=== PATIENT | male | born 1975 | race African-American/Black ===

== ENCOUNTER 2017-04-28 16:35 | Inpatient (IN) | payer MEDICAID, MEDICARE, OTHER, SELFPAY ==
[~2017-04-28] VITALS: Ht 185.4 cm; Wt 83.0 kg
[2017-04-28] MEDS ORDERED: LISI-170 PO (16:58)
[2017-04-28] MEDS ORDERED: THIA100T10 PO (16:59)
[2017-04-28] MEDS ORDERED: FOLI0.8T2 PO (17:00)
[2017-04-28] MEDS ORDERED: LABETALOL 5MG/ML, 20ML ONE (17:18)
[2017-04-28] MEDS ORDERED: LABETALOL 5MG/ML, 20ML IVPush ONE ×2 (17:30→18:30)
[2017-04-28 17:52] LABS: HEMATOCRIT 23.6 % (39.2-51.8); HEMOGLOBIN 7.9 g/dL (13.7-18.0); WHITE BLOOD COUNT 5.3 x10^3/uL (3.4-10)
[2017-04-28 17:57] LABS: BLOOD UREA NITROGEN 32 mg/dL (7-18)
[2017-04-28 18:11] LABS: IS PT STATUS REG ER OR PRE ER? YES
[2017-04-28] MEDS ORDERED: hydrALAzine 20 MG/ML, 1ML IVPush PRN (20:00)
[2017-04-28] MEDS ORDERED: ONDANSETRON 2MG/ML, 2ML IVPush PRN (20:00)
[2017-04-28] MEDS ORDERED: LABETALOL 5MG/ML, 20ML IVPush PRN (20:00)
[2017-04-28] MEDS: SEVELAMER 800MG TABLET PO SCH (20:08)
[2017-04-28] MEDS ORDERED: HEPARIN 5,000 UNITS/ML, 1ML ONE (20:20)
[2017-04-28] MEDS: HEPARIN 5,000 UNITS/ML, 1ML SQ SCH (20:25)
[2017-04-28] MEDS ORDERED: POTASSIUM CHLORIDE 20 MEQ TAB.ER.PRT PO ONE (20:30)
[2017-04-28] MEDS: SODIUM CHLORIDE FLUSH 10ML SYR IVF SCH (21:00)
[2017-04-28] MEDS ORDERED: POTASSIUM CHLORIDE 20 MEQ TAB.ER.PRT ONE (22:47)
[2017-04-28] MEDS: CALCIUM CARBONATE 500 MG TABLET PO SCH (23:08)
[2017-04-28] MEDS: SODIUM BICARBONATE 650 MG TABLET PO SCH (23:08)
[2017-04-28] MEDS ORDERED: ACETAMINOPHEN 325 MG TABLET ONE (23:21)
[2017-04-28] MEDS: ACETAMINOPHEN 325 MG TABLET PO PRN (23:30)
[2017-04-29] MEDS ORDERED: LORazepam 1MG TABLET ONE ×2 (02:31→09:28)
[2017-04-29] MEDS ORDERED: KETOROLAC 30 MG/1 ML ONE (02:32)
[2017-04-29] MEDS ORDERED: KETOROLAC 30 MG/1 ML IVPush ONE (03:00)
[2017-04-29] MEDS ORDERED: LORazepam 1MG TABLET PO ONE (03:00)
[2017-04-29] MEDS: HEPARIN 5,000 UNITS/ML, 1ML SQ SCH ×3 (04:00→20:00)
[2017-04-29] MEDS: CALCIUM CARBONATE 500 MG TABLET PO SCH ×4 (06:00→21:00)
[2017-04-29 06:20] LABS: ASPARTATE AMINO TRANSFERASE 25 U/L (15-37); BLOOD UREA NITROGEN 38 mg/dL (7-18)
[2017-04-29] MEDS ORDERED: hydrALAzine 20 MG/ML, 1ML ONE (06:30)
[2017-04-29] MEDS ORDERED: ACETAMINOPHEN 325 MG TABLET ONE (08:11)
[2017-04-29] MEDS: ACETAMINOPHEN 325 MG TABLET PO PRN ×3 (08:14→19:43)
[2017-04-29] MEDS ORDERED: THIAMINE 100MG TABLET ONE (08:48)
[2017-04-29] MEDS: SODIUM BICARBONATE 650 MG TABLET PO SCH (08:50)
[2017-04-29] MEDS: FOLIC ACID 1 MG TABLET PO SCH (08:50)
[2017-04-29] MEDS: THIAMINE 100MG TABLET PO SCH (08:50)
[2017-04-29] MEDS: SEVELAMER 800MG TABLET PO SCH ×3 (08:50→16:13)
[2017-04-29] MEDS ORDERED: LISINOPRIL 20 MG TABLET ONE (08:53)
[2017-04-29] MEDS ORDERED: LISINOPRIL 20 MG TABLET PO SCH (09:00)
[2017-04-29] MEDS: SODIUM CHLORIDE FLUSH 10ML SYR IVF SCH ×2 (09:00→21:01)
[2017-04-29] MEDS: LORazepam 1MG TABLET PO PRN ×3 (09:31→22:22)
[2017-04-29 10:48] VITALS: BP 193/96
[2017-04-29] MEDS: LABETALOL 5MG/ML, 20ML IVPush PRN (11:05)
[2017-04-29 11:30] VITALS: BP 189/94
[2017-04-29 13:25] VITALS: BP 169/94
[2017-04-29 14:38] LABS: HEMATOCRIT 23.9 % (39.2-51.8); HEMOGLOBIN 8.1 g/dL (13.7-18.0); WHITE BLOOD COUNT 5.1 x10^3/uL (3.4-10)
[2017-04-29 14:43] VITALS: BP 178/97
[2017-04-29] MEDS: HYDROcodone/APAP 5/325 TABLET PO PRN ×2 (16:08→21:00)
[2017-04-29] MEDS: AMLODIPINE 5 MG TABLET PO SCH ×2 (16:12→20:59)
[2017-04-29 17:02] VITALS: BP 169/72
[2017-04-29 20:34] VITALS: BP 168/87
[2017-04-29] MEDS: LISINOPRIL 20 MG TABLET PO SCH (21:00)
[2017-04-29] MEDS ORDERED: AMLODIPINE 5 MG TABLET PO SCH (21:00)
[2017-04-30] MEDS: HYDROcodone/APAP 5/325 TABLET PO PRN ×3 (01:33→23:47)
[2017-04-30 02:00] VITALS: BP 154/94
[2017-04-30] MEDS: HEPARIN 5,000 UNITS/ML, 1ML SQ SCH ×3 (04:00→20:00)
[2017-04-30] MEDS: CALCIUM CARBONATE 500 MG TABLET PO SCH ×4 (05:36→21:27)
[2017-04-30 07:23] LABS: HEMATOCRIT 26.1 % (39.2-51.8); HEMOGLOBIN 8.5 g/dL (13.7-18.0); WHITE BLOOD COUNT 6.1 x10^3/uL (3.4-10)
[2017-04-30 07:26] LABS: BLOOD UREA NITROGEN 43 mg/dL (7-18)
[2017-04-30] MEDS: LORazepam 1MG TABLET PO PRN ×2 (08:30→23:47)
[2017-04-30] MEDS: SODIUM CHLORIDE FLUSH 10ML SYR IVF SCH ×2 (08:31→21:26)
[2017-04-30] MEDS: FOLIC ACID 1 MG TABLET PO SCH (08:31)
[2017-04-30] MEDS: THIAMINE 100MG TABLET PO SCH (08:31)
[2017-04-30] MEDS: SEVELAMER 800MG TABLET PO SCH ×3 (08:31→17:00)
[2017-04-30] MEDS: LISINOPRIL 20 MG TABLET PO SCH ×2 (08:47→21:26)
[2017-04-30] MEDS: AMLODIPINE 5 MG TABLET PO SCH ×2 (08:47→21:27)
[2017-04-30 08:49] VITALS: BP 188/112
[2017-04-30 09:49] VITALS: BP_SYST 173; BP_SYST 175; BP_DIAS 103; BP_DIAS 109
[2017-04-30 10:49] LABS: HEP B SURF. AB < 3.1 mIU/mL (0.0-10.0)
[2017-04-30 16:00] VITALS: BP 109/56
[2017-04-30 19:41] VITALS: BP 158/87
[2017-05-01 02:00] VITALS: BP 152/91
[2017-05-01] MEDS: HEPARIN 5,000 UNITS/ML, 1ML SQ SCH ×3 (04:00→20:00)
[2017-05-01] MEDS: CALCIUM CARBONATE 500 MG TABLET PO SCH ×4 (05:30→21:25)
[2017-05-01 07:13] LABS: BLOOD UREA NITROGEN 39 mg/dL (7-18)
[2017-05-01 08:15] VITALS: BP 156/92
[2017-05-01] MEDS: AMLODIPINE 5 MG TABLET PO SCH ×2 (08:53→21:25)
[2017-05-01] MEDS: LISINOPRIL 20 MG TABLET PO SCH ×2 (08:54→21:25)
[2017-05-01] MEDS: SEVELAMER 800MG TABLET PO SCH ×4 (08:55→20:31)
[2017-05-01] MEDS: SODIUM CHLORIDE FLUSH 10ML SYR IVF SCH ×2 (09:01→21:25)
[2017-05-01] MEDS: FOLIC ACID 1 MG TABLET PO SCH (09:01)
[2017-05-01] MEDS: THIAMINE 100MG TABLET PO SCH (09:01)
[2017-05-01] MEDS: LORazepam 1MG TABLET PO PRN ×2 (14:41→17:07)
[2017-05-01 14:45] VITALS: BP 176/109
[2017-05-01] MEDS: LABETALOL 5MG/ML, 20ML IVPush PRN (14:51)
[2017-05-01] MEDS: HYDROcodone/APAP 5/325 TABLET PO PRN (16:03)
[2017-05-01] MEDS: ASPIRIN 81 MG TABLET EC PO SCH (16:03)
[2017-05-01 21:02] VITALS: BP 150/90
[2017-05-02 04:00] VITALS: BP 143/91
[2017-05-02] MEDS: HEPARIN 5,000 UNITS/ML, 1ML SQ SCH ×3 (04:00→20:49)
[2017-05-02] MEDS: ASPIRIN 81 MG TABLET EC PO SCH (05:09)
[2017-05-02] MEDS: CALCIUM CARBONATE 500 MG TABLET PO SCH ×4 (05:09→20:48)
[2017-05-02 08:02] VITALS: BP 148/91
[2017-05-02] MEDS: HYDROcodone/APAP 5/325 TABLET PO PRN ×4 (08:19→21:19)
[2017-05-02] MEDS: SODIUM CHLORIDE FLUSH 10ML SYR IVF SCH ×2 (08:19→20:49)
[2017-05-02] MEDS: LISINOPRIL 20 MG TABLET PO SCH ×2 (08:19→20:49)
[2017-05-02] MEDS: LORazepam 1MG TABLET PO PRN ×2 (08:19→14:55)
[2017-05-02] MEDS: AMLODIPINE 5 MG TABLET PO SCH ×2 (08:19→20:48)
[2017-05-02] MEDS: FOLIC ACID 1 MG TABLET PO SCH (08:19)
[2017-05-02] MEDS: THIAMINE 100MG TABLET PO SCH (08:19)
[2017-05-02 08:57] LABS: BLOOD UREA NITROGEN 63 mg/dL (7-18)
[2017-05-02 09:43] LABS: HEMATOCRIT 23.8 % (39.2-51.8); WHITE BLOOD COUNT 6.1 x10^3/uL (3.4-10)
[2017-05-02] MEDS: SEVELAMER 800MG TABLET PO SCH ×2 (12:00→14:55)
[2017-05-02 14:57] VITALS: BP 155/84
[2017-05-02 20:00] VITALS: BP 139/86
[2017-05-03 02:00] VITALS: BP 130/81
[2017-05-03] MEDS: HEPARIN 5,000 UNITS/ML, 1ML SQ SCH ×4 (04:00→20:00)
[2017-05-03] MEDS: ASPIRIN 81 MG TABLET EC PO SCH (05:08)
[2017-05-03] MEDS: CALCIUM CARBONATE 500 MG TABLET PO SCH ×4 (05:08→21:26)
[2017-05-03 06:21] LABS: HEMATOCRIT 25.8 % (39.2-51.8); HEMOGLOBIN 8.5 g/dL (13.7-18.0); WHITE BLOOD COUNT 5.4 x10^3/uL (3.4-10)
[2017-05-03 06:22] LABS: BLOOD UREA NITROGEN 47 mg/dL (7-18)
[2017-05-03 06:23] LABS: LACTATE DEHYDROGENASE 381 U/L (87-241)
[2017-05-03] MEDS: SEVELAMER 800MG TABLET PO SCH ×3 (08:50→18:44)
[2017-05-03] MEDS: FOLIC ACID 1 MG TABLET PO SCH (08:51)
[2017-05-03] MEDS: SODIUM CHLORIDE FLUSH 10ML SYR IVF SCH ×2 (08:51→21:29)
[2017-05-03] MEDS: LISINOPRIL 20 MG TABLET PO SCH ×2 (08:51→21:26)
[2017-05-03] MEDS: AMLODIPINE 5 MG TABLET PO SCH ×2 (08:52→21:26)
[2017-05-03] MEDS: LORazepam 1MG TABLET PO PRN ×2 (08:52→18:43)
[2017-05-03] MEDS: HYDROcodone/APAP 5/325 TABLET PO PRN ×4 (08:52→21:26)
[2017-05-03] MEDS: THIAMINE 100MG TABLET PO SCH (08:52)
[2017-05-03] MEDS: DEXAMETHASONE 4 MG/ML, 1ML IVPush SCH ×4 (09:00→21:00)
[2017-05-03 09:27] VITALS: BP 136/93
[2017-05-03] MEDS: ARANESP 60 MCG/ML **ESRD SQ SCH ×2 (11:00→16:30)
[2017-05-03 13:48] VITALS: BP 138/91
[2017-05-03] MEDS ORDERED: POLYETHYLENE GLYCOL 17 GM PACKET PO PRN (19:30)
[2017-05-03 20:22] VITALS: BP 130/80
[2017-05-03] MEDS: SENNA/DOCUSATE TABLET PO PRN (21:26)
[2017-05-04 02:45] VITALS: BP 143/89
[2017-05-04] MEDS: DEXAMETHASONE 4 MG/ML, 1ML IVPush SCH ×4 (03:00→18:21)
[2017-05-04] MEDS: LORazepam 1MG TABLET PO PRN ×3 (03:48→15:03)
[2017-05-04] MEDS: HYDROcodone/APAP 5/325 TABLET PO PRN ×4 (03:49→20:10)
[2017-05-04] MEDS: HEPARIN 5,000 UNITS/ML, 1ML SQ SCH ×3 (04:00→20:00)
[2017-05-04] MEDS: CALCIUM CARBONATE 500 MG TABLET PO SCH ×4 (05:08→21:12)
[2017-05-04] MEDS: ASPIRIN 81 MG TABLET EC PO SCH (05:08)
[2017-05-04 05:28] LABS: HEMATOCRIT 23.6 % (39.2-51.8); HEMOGLOBIN 7.8 g/dL (13.7-18.0); WHITE BLOOD COUNT 5.3 x10^3/uL (3.4-10)
[2017-05-04 05:32] LABS: BLOOD UREA NITROGEN 65 mg/dL (7-18)
[2017-05-04 05:54] LABS: BLOOD UREA NITROGEN 61 mg/dL (7-18); FERRITIN 540.6 ng/mL (26-388); TOTAL IRON BINDING CAPACITY 197 mcg/dL (250-450)
[2017-05-04 08:43] VITALS: BP 143/91
[2017-05-04] MEDS: LISINOPRIL 20 MG TABLET PO SCH ×2 (08:45→21:12)
[2017-05-04] MEDS: SODIUM CHLORIDE FLUSH 10ML SYR IVF SCH ×2 (08:45→21:12)
[2017-05-04] MEDS: THIAMINE 100MG TABLET PO SCH (08:45)
[2017-05-04] MEDS: AMLODIPINE 5 MG TABLET PO SCH ×2 (08:45→21:12)
[2017-05-04] MEDS: FOLIC ACID 1 MG TABLET PO SCH (08:45)
[2017-05-04] MEDS: SEVELAMER 800MG TABLET PO SCH ×3 (08:45→17:31)
[2017-05-04 14:55] VITALS: BP 151/99
[2017-05-04] MEDS: SENNA/DOCUSATE TABLET PO PRN (16:49)
[2017-05-04 19:43] VITALS: BP 151/101
[2017-05-05] MEDS: LORazepam 1MG TABLET PO PRN ×2 (00:08→08:08)
[2017-05-05] MEDS: DEXAMETHASONE 4 MG/ML, 1ML IVPush SCH ×3 (00:08→14:44)
[2017-05-05 03:10] VITALS: BP 131/76
[2017-05-05] MEDS: HYDROcodone/APAP 5/325 TABLET PO PRN ×3 (03:24→13:09)
[2017-05-05] MEDS: ACETAMINOPHEN 325 MG TABLET PO PRN ×2 (03:26→09:08)
[2017-05-05] MEDS: HEPARIN 5,000 UNITS/ML, 1ML SQ SCH ×2 (03:56→12:15)
[2017-05-05] MEDS: CALCIUM CARBONATE 500 MG TABLET PO SCH ×2 (05:16→10:46)
[2017-05-05] MEDS: ASPIRIN 81 MG TABLET EC PO SCH (05:17)
[2017-05-05 07:55] VITALS: BP 156/100
[2017-05-05] MEDS: FOLIC ACID 1 MG TABLET PO SCH (08:08)
[2017-05-05] MEDS: SEVELAMER 800MG TABLET PO SCH ×2 (08:08→13:09)
[2017-05-05] MEDS: THIAMINE 100MG TABLET PO SCH (08:08)
[2017-05-05] MEDS: SODIUM CHLORIDE FLUSH 10ML SYR IVF SCH (08:10)
[2017-05-05] MEDS: AMLODIPINE 5 MG TABLET PO SCH ×2 (08:23→10:46)
[2017-05-05] MEDS: LISINOPRIL 20 MG TABLET PO SCH ×2 (08:23→10:46)
[2017-05-05 12:55] LABS: HEMOGLOBIN 7.5 g/dL (13.7-18.0); WHITE BLOOD COUNT 7.4 x10^3/uL (3.4-10)
[2017-05-05 13:07] LABS: BLOOD UREA NITROGEN 41 mg/dL (7-18)
[2017-05-05 13:32] LABS: HEMATOCRIT 22.9 % (39.2-51.8)
[2017-05-05] MEDS ORDERED: CLON0.2T10 PO (14:46)
[2017-05-05] MEDS ORDERED: AMLO5TAB2 PO (14:46)
[2017-05-05] MEDS ORDERED: DEXA4TAB PO (14:46)
[2017-05-05] MEDS ORDERED: SEVE800T7 PO (14:46)
[2017-05-05] MEDS ORDERED: LISI-170 PO (19:32)
[2017-05-06 13:07] LABS: A/G RATIO 0.8 (0.7-1.7); ALBUMIN 2.8 g/dL (2.9-4.4); ALPHA-1-GLOBULIN 0.2 g/dL (0.0-0.4); BETA GLOBULIN 0.9 g/dL (0.7-1.3); GAMMA GLOBULIN 1.9 g/dL (0.4-1.8); PROTEIN TOTAL 6.3 g/dL (6.0-8.5)
== END 2017-05-05 15:43 | disposition home or self-care (01) | DRG 304 ==
LOC: ED 18:31 → SUATTDRO 18:31 → EDIP 18:32 → ED 19:01 → 4EST 04-29 10:39 → 4WST 05-01 18:07
PROVIDERS: ADMIT Hospitalist; ATTEND Hospitalist
PROC: 5A1D70Z Performance of Urinary Filtration, Intermittent, Less than 6 Hours Per Day (ICD-10-PCS; principal; 2017-04-30)
PROC: 5A1D70Z Performance of Urinary Filtration, Intermittent, Less than 6 Hours Per Day (ICD-10-PCS; 2017-05-02)
PROC: 5A1D70Z Performance of Urinary Filtration, Intermittent, Less than 6 Hours Per Day (ICD-10-PCS; 2017-05-05)
DX: I16.0 Hypertensive urgency (principal); N18.6 End stage renal disease; E43 Unspecified severe protein-calorie malnutrition; E87.3 Alkalosis; E83.51 Hypocalcemia; N25.0 Renal osteodystrophy; I50.30 Unspecified diastolic (congestive) heart failure; I13.2 Hypertensive heart and chronic kidney disease with heart failure and with stage 5 chronic kidney disease, or end stage renal disease; D63.1 Anemia in chronic kidney disease; E55.9 Vitamin D deficiency, unspecified; E87.6 Hypokalemia; F10.21 Alcohol dependence, in remission; N26.9 Renal sclerosis, unspecified; Z83.3 Family history of diabetes mellitus; Z87.891 Personal history of nicotine dependence; Z99.2 Dependence on renal dialysis; Z68.24 Body mass index [BMI] 24.0-24.9, adult
CPT/HCPCS: 36415; 70450; 70544; 70547; 70551; 71010; 72141; 80048; 80053; 80061; 80069; 82040; 82306; 82607; 82728; 83540; 83550; 83615; 83735; 84100; 84155; 84165; 84443; 84484; 85025; 85045; 85651; 86038; 86140; 86704; 86706; 87340; 93005; 93306; 96374; 96375; 96376; J0882; J1100; J1644; J1885; J2405; J0360

== ENCOUNTER 2019-08-23 20:08 | Emergency (ER) | payer MEDICAID ==
[~2019-08-23] VITALS: Ht 182.9 cm; Wt 83.0 kg
[~2019-08-23 20:08] MED LIST: AMLO-150 PO; ASPI81TA45 PO; CLON0.2T10 PO; CLON0.3T PERC; DEXA4TAB PO; FOLI0.8T2 PO; LISI-170 PO; LORA1TAB PO; NIFE-7 PO; SEVE800T7 PO; THIA100T10 PO
[2019-08-23 20:13] VITALS: BP 148/87
[2019-08-23] MEDS ORDERED: HYDROcodone/APAP 10/325 MG TABLET ONE (21:06)
[2019-08-23 21:17] LABS: ALBUMIN 3.4 g/dL (3.4-5.0); ANION GAP 9 mmol/L (5-15); CALCIUM 8.3 mg/dL (8.5-10.1); CHLORIDE 97 mmol/L (98-107)
[2019-08-23 21:21] LABS: TROPONIN I < 0.015 ng/mL (0.000-0.045)
[2019-08-23 21:29] LABS: MEAN CORPUSCULAR HEMOGLOBIN 32.8 pg (27.5-34.5); MEAN CORPUSCULAR HGB CONC 34.2 g/dL (33.2-36.2); MEAN CORPUSCULAR VOLUME 95.8 fL (81-97); MEAN PLATELET VOLUME 7.8 fL (7.4-10.4); PLATELET COUNT 206 x10^3/uL (130-400); RED BLOOD COUNT 2.24 x10^6/uL (4.38-5.82); RED CELL DISTRIBUTION WIDTH 16.5 % (9.4-14.8)
[2019-08-23] MEDS ORDERED: HYDROcodone/APAP 10/325 MG TABLET PO ONE (21:30)
[2019-08-23 21:42] LABS: BASOPHILS # (AUTO) 0.03 x10^3/uL (0-0.1); BASOPHILS % (AUTO) 1 % (0-1); EOSINOPHILS # (AUTO) 0.13 x10^3/uL (0-0.4); EOSINOPHILS % (AUTO) 2 % (1-7); LYMPHOCYTES # (AUTO) 1.41 x10^3/uL (1-3.4); LYMPHOCYTES % (AUTO) 23 % (22-44); MD SCAN; MONOCYTES # (AUTO) 0.83 x10^3/uL (0.2-0.8); MONOCYTES % (AUTO) 14 % (2-9); NEUTROPHILS % (AUTO) 61 % (42-75)
== END 2019-08-23 22:14 | disposition home or self-care (01) ==
LOC: ED 21:45
DX: S70.12XA Contusion of left thigh, initial encounter (principal); R07.89 Other chest pain; I10 Essential (primary) hypertension; W22.8XXA Striking against or struck by other objects, initial encounter; Y93.89 Activity, other specified; Y92.89 Other specified places as the place of occurrence of the external cause; Y99.8 Other external cause status
CPT/HCPCS: 36415; 71045; 80048; 82040; 83880; 84484; 85025; 93005; 99285

== ENCOUNTER 2019-11-08 10:44 | Emergency (ER) | payer MEDICAID ==
[~2019-11-08] VITALS: Ht 182.9 cm; Wt 84.7 kg
--- NOTE | 2019-11-08 11:29 | NUR ---
Patient roomed and gowned, continuous blood pressure, SPO2 and cardiac monitoring in place. Patient is reporting he could not complete dialysis today and has had issues completing dialysis multiple times lately due to discomfort. Patient is reporting anxiety related to not having ativan for multiple days.
[2019-11-08] MEDS ORDERED: HYDR100T25 PO (11:38)
[2019-11-08] MEDS ORDERED: NIFE30TA13 PO (11:38)
[2019-11-08] MEDS ORDERED: HYDR-3343 PO (11:38)
[2019-11-08] MEDS ORDERED: NIFE-6 PO (11:38)
--- NOTE | 2019-11-08 11:42 | NUR ---
Mata chavez in [facility] - 11/08/19 at 1143 by VICTOR M 11Patient requests pain medication (states he took ibuprofen 400mg and tylenol
--- NOTE | 2019-11-08 11:43 | NUR ---
Patient requests pain medication (states he took ibuprofen 400mg and tylenol 1000mg prior to arrival at 0930am), ativan and tums. Dr. Martinez notified.
[2019-11-08] MEDS ORDERED: LORazepam 1MG TABLET PO ONE (12:00)
[2019-11-08] MEDS ORDERED: ALUMINUM/MAG/SIMETHICONE 30 ML UDC PO PRN (12:00)
[2019-11-08] MEDS ORDERED: ACETAMINOPHEN 500 MG TABLET PO ONE (12:00)
[2019-11-08 12:01] LABS: MEAN CORPUSCULAR HEMOGLOBIN 32.7 pg (27.5-34.5); MEAN CORPUSCULAR HGB CONC 32.6 g/dL (33.2-36.2); MEAN CORPUSCULAR VOLUME 100.3 fL (81-97); MEAN PLATELET VOLUME 7.4 fL (7.4-10.4); PLATELET COUNT 198 x10^3/uL (130-400); RED BLOOD COUNT 3.68 x10^6/uL (4.38-5.82); RED CELL DISTRIBUTION WIDTH 17.5 % (9.4-14.8)
[2019-11-08] MEDS ORDERED: LORazepam 1MG TABLET ONE (12:07)
[2019-11-08] MEDS ORDERED: ALUMINUM/MAG/SIMETHICONE 30 ML UDC ONE (12:07)
[2019-11-08 12:08] LABS: ALANINE AMINOTRANSFERASE 76 U/L (12-78); ALBUMIN 3.5 g/dL (3.4-5.0); ANION GAP 8 mmol/L (5-15); CHLORIDE 98 mmol/L (98-107)
--- NOTE | 2019-11-08 12:11 | NUR ---
Patient medicated as ordered and documented, call stephens within reach.
[2019-11-08 12:40] LABS: BASOPHILS # (AUTO) 0.04 x10^3/uL (0-0.1); BASOPHILS % (AUTO) 1 % (0-1); EOSINOPHILS # (AUTO) 0.13 x10^3/uL (0-0.4); EOSINOPHILS % (AUTO) 3 % (1-7); LYMPHOCYTES % (AUTO) 25 % (22-44); MD SCAN; MONOCYTES # (AUTO) 0.87 x10^3/uL (0.2-0.8); MONOCYTES % (AUTO) 18 % (2-9); NEUTROPHILS # (AUTO) 2.54 x10^3/uL (1.8-6.8); NEUTROPHILS % (AUTO) 53 % (42-75)
[2019-11-08 12:43] LABS: ALKALINE PHOSPHATASE 224 U/L (45-117); BILIRUBIN,TOTAL 0.5 mg/dL (0.2-1.0); TOTAL PROTEIN 8.8 g/dL (6.4-8.2)
[2019-11-08 13:30] VITALS: BP 160/93
--- NOTE | 2019-11-08 13:30 | NUR ---
Warm blankets provided as requested, no questions or complaints at this time.
--- NOTE | 2019-11-08 14:42 | NUR ---
Discharge instructions discussed with patient including when to return to emergency department, questions answered, patient verbalizes understanding. Patient dresses independently, states improvement in anxiety.
== END 2019-11-08 14:45 | disposition home or self-care (01) ==
LOC: ED 12:20
DX: G89.11 Acute pain due to trauma (principal); I12.0 Hypertensive chronic kidney disease with stage 5 chronic kidney disease or end stage renal disease; N18.6 End stage renal disease; R94.31 Abnormal electrocardiogram [ECG] [EKG]
CPT/HCPCS: 36415; 71045; 80053; 83880; 85025; 93005; 99285

== ENCOUNTER 2019-11-16 11:52 | Emergency (ER) | payer MEDICAID ==
[~2019-11-16] VITALS: Ht 182.9 cm; Wt 83.8 kg
[~2019-11-16 11:52] MED LIST changes: +HYDR-3343 PO; +HYDR100T25 PO; +NIFE-6 PO; +NIFE30TA13 PO
--- NOTE | 2019-11-16 12:38 | NUR ---
pt presents to ED with seeking a temp dialysis cath replacement under sedation, pt states he was referred by "access clinic" as he could not tolerate procedure without sedation. upon initial contact with ETHEL Curtis, pt accused ETHEL of "not knowing what you're doing" as MD was asking pt circumstances of referral to ED. Pt became abrasive and verbally abusive with ETHEL as MD was attempting to perform initial assessment. Pt states last dialysis was 3 days ago. pt declines need for blanket. call light in reach. bed locked and in lowest position. at bedside. pt and decline any needs at this time. POC discussed with ptETHEL to consult IR for placement. Addendum: 11/16/19 at 1302 by NANCIE break RN note: pt presents to ED with seeking a temp dialysis cath replacement under sedation, pt states he was referred by "access clinic" as he could not tolerate procedure without sedation. upon initial contact with ETHEL Curtis, pt accused ETHEL of "not knowing what you're doing" as MD was asking pt circumstances of referral to ED. Pt became abrasive and verbally abusive with ETHEL as MD was attempting to perform initial assessment. Pt states last dialysis was 3 days ago. pt declines need for blanket. call light in reach. bed locked and in lowest position. at bedside. pt and decline any needs at this time. POC discussed with ptETHEL to consult IR for placement.
[2019-11-16] MEDS ORDERED: HYDROcodone/APAP 5/325 TABLET PO ONE (13:00)
--- NOTE | 2019-11-16 13:02 | NUR ---
report given to WILLIE Rivas who is to resume care
--- NOTE | 2019-11-16 13:43 | NUR ---
REPORT TO IR
[2019-11-16] MEDS ORDERED: NALOXONE 1 MG/ML, 2ML ONE (13:51)
[2019-11-16] MEDS ORDERED: FLUMAZENIL 0.1 MG/1 ML, 5ML ONE (13:51)
[2019-11-16] MEDS ORDERED: FENTANYL PF 100 MCG/2ML ONE (13:51)
[2019-11-16] MEDS ORDERED: MIDAZOLAM 1 MG/ML, 5ML ONE (13:51)
[2019-11-16] MEDS ORDERED: LIDOCAINE 1%, 20ML ONE (13:56)
--- NOTE | 2019-11-16 14:47 | NUR ---
PT IN IR
--- NOTE | 2019-11-16 15:41 | NUR ---
REPORT FROM IR. PT TOLERATED PROCEDURE. PERMA CATH LEAKING AROUND SITE PER IR
--- NOTE | 2019-11-16 16:15 | NUR ---
PT GIVEN WATER, PT DEMANDING JUICE, STATES, "I WANT ANOTHER NURSE WHO WILL GIVE ME JUICE". PT BECOMING VERBALLY AGRESSIVE TOWARDS STAFF.
[2019-11-16] MEDS ORDERED: LIDOCAINE 1%-EPI 1:100K, 20ML ONE (16:33)
--- NOTE | 2019-11-16 16:43 | NUR ---
DRESSING SATURATED W BLOOD. IR TOLD RN THAT WOULD MOST LIKELY HAPPEN RELATED TO SCAR TISSUE W THE PROCEDURE. PT BECOMING VERBALLY AGRESSIVE W RN AND WILL NOT LET THIS RN ASSESS RIGHT CHEST CATH OR DRESSING. PT DEMANDING A NEW NURSE, AND JESUS. AT BEDSIDE DISCUSSING POC, PT ALSO BECAME VERBALLY AGRESSIVE W . VSS
[2019-11-16] MEDS ORDERED: LIDOCAINE 1%-EPI 1:100K, 50ML INFIL ONE (17:00)
--- NOTE | 2019-11-16 17:26 | NUR ---
MD AT BEDSIDE REDRESSING DRESSING. RN AT BEDSIDE TO ASSIST. PT TOLERATED DRESSING CHANGE
[2019-11-16] MEDS ORDERED: niFEDipine ER 30 MG TABLET.ER PO ONE (18:00)
[2019-11-16 18:08] VITALS: BP 166/99
--- NOTE | 2019-11-16 18:18 | NUR ---
DRESSING NOT SATURATED. MD KRAIG Juarez DC. IV REMOVED. PT VERBALLY AGGRESSIVE W RN "DONT TOUCH ME" DC PAPERS GIVEN, SIGNIFICANT OTHER CONFIRMED UNDERSTANDING OF INSTRUCTIONS.
== END 2019-11-16 18:24 | disposition home or self-care (01) ==
LOC: ED 12:55
DX: T82.49XA Other complication of vascular dialysis catheter, initial encounter (principal); I12.9 Hypertensive chronic kidney disease with stage 1 through stage 4 chronic kidney disease, or unspecified chronic kidney disease; N18.9 Chronic kidney disease, unspecified; Z87.891 Personal history of nicotine dependence; Y84.1 Kidney dialysis as the cause of abnormal reaction of the patient, or of later complication, without mention of misadventure at the time of the procedure; Y92.89 Other specified places as the place of occurrence of the external cause
CPT/HCPCS: 36581; 75984; 99156; 99157; 99285; C1725; C1750; C1769; C1894; J1642; J2250; J3010; J3490; J2310

== ENCOUNTER 2019-11-19 10:15 | Emergency (ER) | payer MEDICAID ==
[~2019-11-19] VITALS: Ht 182.9 cm; Wt 82.0 kg
--- NOTE | 2019-11-19 10:35 | NUR ---
PT WC'D TO ROOM 38. PT TAKES NEFETAPIME 40 MG AND 100 MG HYDRALAZINE, 12.5 MG CARVEDILOL FOR BP. PT HAS BEEN DOUBLING DOSES HE TAKES MEDS AT 0430 THEN RECHECKS BP AND NOTICES THAT IT IS HIGH AGAIN AT 0730 AND RETAKES DOSES. PT STATES HE IS ALSO HAVING N/V/D SINCE THIS AM. PT HAS SEMIFIRM ABDOMEN W/ PAIN TO LUQ AND LLQ. PT STATES HE WAS AT DIALYSIS AND HAD TO STOP IT EARLY SECONDARY TO HOT FLASHES. STATES HE IS ALSO CURRENTLY HAVING A HERPES OUTRBREAK. PT STATES THIS IS WHY HIS BP IS SO HIGH. PT RESTING ON GURNEY. MONITORS IN PLACE. ERP DR. BURKETT AT BEDSIDE.
--- NOTE | 2019-11-19 10:51 | NUR ---
PER PT CALL HIS S/O LORRAINE AT [phone] W/ UPDATES.
--- NOTE | 2019-11-19 10:54 | NUR ---
REPORT GIVEN TO WILLIE ROCA.
[2019-11-19] MEDS ORDERED: SODIUM CHLORIDE 0.9% 1,000ML IVBOLUS ONE (11:00)
[2019-11-19] MEDS ORDERED: SODIUM CHLORIDE FLUSH 10ML SYR IVF ONE (11:00)
[2019-11-19] MEDS ORDERED: ACYCLOVIR 800 MG TABLET PO ONE (11:00)
[2019-11-19 11:26] VITALS: BP 172/99
[2019-11-19 11:28] LABS: BASOPHILS # (AUTO) 0.01 x10^3/uL (0-0.1); BASOPHILS % (AUTO) 0 % (0-1); EOSINOPHILS # (AUTO) 0.15 x10^3/uL (0-0.4); EOSINOPHILS % (AUTO) 3 % (1-7); LYMPHOCYTES # (AUTO) 1.78 x10^3/uL (1-3.4); LYMPHOCYTES % (AUTO) 28 % (22-44); MD NO; MEAN CORPUSCULAR HEMOGLOBIN 32.1 pg (27.5-34.5); MEAN CORPUSCULAR HGB CONC 32.4 g/dL (33.2-36.2); MEAN PLATELET VOLUME 8.2 fL (7.4-10.4); MONOCYTES % (AUTO) 19 % (2-9); NEUTROPHILS # (AUTO) 3.12 x10^3/uL (1.8-6.8); NEUTROPHILS % (AUTO) 50 % (42-75); PLATELET COUNT 209 x10^3/uL (130-400); RED BLOOD COUNT 3.38 x10^6/uL (4.38-5.82); RED CELL DISTRIBUTION WIDTH 17.5 % (9.4-14.8)
[2019-11-19 11:33] LABS: ALANINE AMINOTRANSFERASE 71 U/L (12-78); ALBUMIN 3.2 g/dL (3.4-5.0); ANION GAP 9 mmol/L (5-15); CALCIUM 8.8 mg/dL (8.5-10.1); CHLORIDE 99 mmol/L (98-107)
[2019-11-19 11:35] LABS: ALKALINE PHOSPHATASE 262 U/L (45-117); BILIRUBIN,TOTAL 0.4 mg/dL (0.2-1.0); TOTAL PROTEIN 8.3 g/dL (6.4-8.2)
--- NOTE | 2019-11-19 11:36 | NUR ---
report from seth sosa. meds per mar. awaiting rresults. as
--- NOTE | 2019-11-19 11:58 | NUR ---
MARGIE IN ROOM FOR EVAL TBDC.
== END 2019-11-19 12:56 | disposition home or self-care (01) ==
LOC: ED 10:30
DX: A60.01 Herpesviral infection of penis (principal); R19.7 Diarrhea, unspecified; I12.9 Hypertensive chronic kidney disease with stage 1 through stage 4 chronic kidney disease, or unspecified chronic kidney disease; N18.9 Chronic kidney disease, unspecified; R94.31 Abnormal electrocardiogram [ECG] [EKG]; Z87.891 Personal history of nicotine dependence; Z99.2 Dependence on renal dialysis
CPT/HCPCS: 36415; 74022; 80053; 85025; 93005; 96360; 99285; J7030

== ENCOUNTER 2019-11-21 07:18 | Observation (INO) | payer MEDICAID ==
[~2019-11-21] VITALS: Ht 182.9 cm; Wt 86.0 kg
--- NOTE | 2019-11-21 07:52 | NUR ---
Code Neuro called at 07:49.
--- NOTE | 2019-11-21 08:24 | NUR ---
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 PT HAD DIFFICULTY GETTING TO [facility] STATES HE IS "TIRED AND COLD", AUDRA JOIE TO BEDSIDE FOR ASSESSMENT, UPON ASSESSMENT PTS GIRLFRIEND STATES SHE FEELS LIKE HIS SPEECH IS SLURRED. CODE NEURO CALLED. PT TO CT.
[2019-11-21] MEDS ORDERED: OMNIPAQUE 350 MG/ML, 75ML BOTTLE ONE (08:42)
[2019-11-21 08:43] LABS: INTERNATIONAL NORMALIZED RATIO 1.01 (0.93-1.1); PROTHROMBIN TIME 10.7 Seconds (9.6-11.5)
[2019-11-21 08:45] LABS: MEAN CORPUSCULAR HEMOGLOBIN 32.4 pg (27.5-34.5); MEAN CORPUSCULAR HGB CONC 32.7 g/dL (33.2-36.2); MEAN CORPUSCULAR VOLUME 98.9 fL (81-97); MEAN PLATELET VOLUME 7.9 fL (7.4-10.4); PLATELET COUNT 202 x10^3/uL (130-400); RED BLOOD COUNT 3.29 x10^6/uL (4.38-5.82); RED CELL DISTRIBUTION WIDTH 17.4 % (9.4-14.8)
[2019-11-21 08:48] LABS: TROPONIN I < 0.015 ng/mL (0.000-0.045)
[2019-11-21 09:15] LABS: MD YES
--- NOTE | 2019-11-21 09:18 | NUR ---
PT RESTING IN GURNEY WITH GIRLFRIEND AT BEDSIDE, NO NEEDS AT THIS TIME. CALL LIGHT WITHIN REACH
[2019-11-21 09:26] LABS: <PLATELET ESTIMATE> ADEQUATE; <PLT MORPHOLOGY> NORMAL PLT MORPH; ANISOCYTOSIS 1+; BASOS#(MANUAL) 0.04 x10^3/uL (0-0.1); BASOS% (MANUAL) 1 % (0-1); EOS% (MANUAL) 5 % (1-7); HYPOCHROMIA 1+; LYMPH#(MANUAL) 1.25 x10^3/uL (1-3.4); LYMPHS% (MANUAL) 32 % (22-44); MONOS#(MANUAL) 0.51 x10^3/uL (0.3-2.7); MONOS% (MANUAL) 13 % (2-9); SEG#(MANUAL) 1.91 x10^3/uL (1.8-6.8); SEGS% (MANUAL) 49 % (42-75)
--- NOTE | 2019-11-21 09:51 | NUR ---
REPORT TO SILVIA TAPIA
[2019-11-21 11:29] VITALS: BP 179/98
[2019-11-21] MEDS ORDERED: LORazepam 2 MG/ML, 1ML IVPush ONE (11:30)
[2019-11-21] MEDS ORDERED: GADOTERATE 7.5 MMOL/15 ML SYR ONE (12:27)
[2019-11-21] MEDS ORDERED: ONDANSETRON ODT 4 MG PO PRN (12:30)
[2019-11-21] MEDS ORDERED: FOLIC ACID 1 MG TABLET PO SCH (12:30)
[2019-11-21] MEDS ORDERED: BISACODYL 10 MG SUPP PR PRN (12:30)
[2019-11-21] MEDS ORDERED: ASPIRIN 81 MG TABLET EC PO SCH (12:30)
[2019-11-21] MEDS ORDERED: ONDANSETRON 2MG/ML, 2ML IVPush PRN (12:30)
[2019-11-21] MEDS ORDERED: ACETAMINOPHEN 325 MG TABLET PO PRN (12:30)
[2019-11-21] MEDS ORDERED: DOCUSATE 100 MG CAPSULE PO PRN (12:30)
[2019-11-21] MEDS ORDERED: HYDR-3343 PO (13:43)
[2019-11-21] MEDS ORDERED: CARV-39 PO (13:43)
[2019-11-21] MEDS ORDERED: DULO20CA45 PO (13:43)
[2019-11-21] MEDS ORDERED: NIFE-7 PO (13:43)
[2019-11-21] MEDS ORDERED: CITA20TA6 PO (13:43)
[2019-11-21] MEDS ORDERED: LORA-446 PO (13:43)
[2019-11-21 15:00] VITALS: BP 178/106
[2019-11-21] MEDS ORDERED: LORazepam 1MG TABLET PO SCH (16:00)
[2019-11-21] MEDS ORDERED: niFEDipine ER 30 MG TABLET.ER PO SCH (16:00)
[2019-11-21] MEDS ORDERED: CARVEDILOL 12.5 MG TABLET PO SCH (18:00)
[2019-11-21] MEDS ORDERED: GABAPENTIN 300 MG CAPSULE PO SCH (21:00)
== END 2019-11-21 15:33 | disposition left against medical advice (07) ==
LOC: ED 07:48 → EDIP 09:02 → INTOOBSV 09:02 → 4WST 11:17
PROVIDERS: ADMIT Emergency Medicine; ATTEND Emergency Medicine
DX: G62.9 Polyneuropathy, unspecified (principal); I12.0 Hypertensive chronic kidney disease with stage 5 chronic kidney disease or end stage renal disease; N18.6 End stage renal disease; F20.9 Schizophrenia, unspecified; F41.9 Anxiety disorder, unspecified; M48.02 Spinal stenosis, cervical region; R27.0 Ataxia, unspecified; R47.81 Slurred speech; R47.1 Dysarthria and anarthria; R51 Headache; D63.1 Anemia in chronic kidney disease; R29.703 NIHSS score 3; F12.10 Cannabis abuse, uncomplicated; I63.9 Cerebral infarction, unspecified; F40.240 Claustrophobia; Z79.899 Other long term (current) drug therapy; Z79.82 Long term (current) use of aspirin; Z99.2 Dependence on renal dialysis; Z87.891 Personal history of nicotine dependence
CPT/HCPCS: 36415; 70450; 70496; 70498; 70553; 80047; 84484; 85025; 85610; 85730; 93005; 96374; 99285; A9575; G0378; J2060; Q9967

== ENCOUNTER 2019-11-22 05:31 | Emergency (ER) | payer MEDICAID ==
[~2019-11-22] VITALS: Ht 182.9 cm; Wt 85.3 kg
[~2019-11-22 05:31] MED LIST changes: +CARV-39 PO; +CITA20TA6 PO; +DULO20CA45 PO; +LORA-446 PO
[2019-11-22 05:35] VITALS: BP 147/83
--- NOTE | 2019-11-22 05:44 | NUR ---
Pt presented to ER35 in wheelchair. This nurse overheard pt call staff "bitch." This nurse approached room to speak to pt. When nurse and tech attempted to help pt transfer to bed, pt pushed himself back in the wheelchair, stood up and stated "fuck this shit.. i dont have covid and i don't need to be in this room." Pt proceeded to walk down the hallway and through the exit without any difficulty.
== END 2019-11-22 05:49 | disposition left against medical advice (07) ==
LOC: ED 05:38
DX: R06.02 Shortness of breath (principal); R51 Headache; Z53.21 Procedure and treatment not carried out due to patient leaving prior to being seen by health care provider

== ENCOUNTER 2020-02-21 18:33 | Inpatient (IN) | payer MEDICAID ==
[~2020-02-21] VITALS: Ht 182.9 cm; Wt 82.0 kg
--- NOTE | 2020-02-21 19:10 | NUR ---
PT REQUESTING OXYGEN. PT O2 SAT IS 97%. EXPLAINED TO PT THERE IS NO CLINICAL INDICATION FOR O2. PT BECOMING AGIATED AND SLAMMING HIS HANDS ON THE BED. "I WANT ANOTHER NURSE. THIS IS BULLSHIT. JUST GIVE ME SOME FUCKING OXYGEN". TOLD THE PT TO WAIT TO SEE WHAT THE PROVIDER ORDERS. PT VITAL SIGNS REMAIN STABLE. WILL CONTINUE TO MONITOR.
--- NOTE | 2020-02-21 19:17 | NUR ---
PLACED PT ON 1 LITER FOR COMFORT. PT WANTED TO BE ON 3 LITERS. EXPLAINED TO PT THERE IS NO NEED TO OVER SATURATE HIS BLOOD WITH O2. PT SCREAMED "I WANT SOME FUCKING HELP. I PLACE IT ON 3 LITERS MYSELF"
[2020-02-21] MEDS ORDERED: MORPHINE SULFATE 4 MG/ML, 1ML ONE (20:19)
[2020-02-21] MEDS ORDERED: MORPHINE SULFATE 4 MG/ML, 1ML IVPush PRN (20:30)
[2020-02-21] MEDS ORDERED: SODIUM CHLORIDE FLUSH 10ML SYR IVF ONE (20:30)
[2020-02-21] MEDS ORDERED: ONDANSETRON 2MG/ML, 2ML ONE (20:34)
[2020-02-21 20:38] LABS: BASOPHILS # (AUTO) 0.05 x10^3/uL (0-0.1); BASOPHILS % (AUTO) 1 % (0-1); EOSINOPHILS # (AUTO) 0.18 x10^3/uL (0-0.4); EOSINOPHILS % (AUTO) 3 % (1-7); LYMPHOCYTES # (AUTO) 1.63 x10^3/uL (1-3.4); LYMPHOCYTES % (AUTO) 29 % (22-44); MD NO; MEAN CORPUSCULAR HEMOGLOBIN 31.8 pg (27.5-34.5); MEAN CORPUSCULAR HGB CONC 31.7 g/dL (33.2-36.2); MEAN CORPUSCULAR VOLUME 100.4 fL (81-97); MEAN PLATELET VOLUME 7.8 fL (7.4-10.4); MONOCYTES % (AUTO) 18 % (2-9); NEUTROPHILS # (AUTO) 2.75 x10^3/uL (1.8-6.8); NEUTROPHILS % (AUTO) 49 % (42-75); PLATELET COUNT 180 x10^3/uL (130-400); RED BLOOD COUNT 3.33 x10^6/uL (4.38-5.82); RED CELL DISTRIBUTION WIDTH 17.6 % (9.4-14.8)
--- NOTE | 2020-02-21 20:39 | NUR ---
PT MEDICATED PER AUG. REPORTS PAIN IMPROVEMENT
[2020-02-21 20:49] LABS: ALANINE AMINOTRANSFERASE 57 U/L (12-78); ALBUMIN 3.6 g/dL (3.4-5.0); ANION GAP 11 mmol/L (5-15); CALCIUM 9.1 mg/dL (8.5-10.1); CHLORIDE 101 mmol/L (98-107)
[2020-02-21 20:54] LABS: ALKALINE PHOSPHATASE 181 U/L (45-117); BILIRUBIN,TOTAL 0.5 mg/dL (0.2-1.0); TOTAL PROTEIN 8.9 g/dL (6.4-8.2); TROPONIN I < 0.015 ng/mL (0.000-0.045)
[2020-02-21] MEDS ORDERED: ONDANSETRON 2MG/ML, 2ML IVPush ONE (21:00)
[2020-02-21] MEDS ORDERED: SODIUM CHLORIDE FLUSH 10ML SYR IVF PRN (21:30)
--- NOTE | 2020-02-21 21:30 | NUR ---
PT RESTING IN [facility]. PT TO BE ADMITTED
[2020-02-21 22:33] VITALS: BP 178/89
[2020-02-21] MEDS ORDERED: LIDODERM 5% PATCH TD PRN (23:30)
[2020-02-21] MEDS ORDERED: LORazepam 1MG TABLET PO PRN (23:30)
[2020-02-21] MEDS: HEPARIN 5,000 UNITS/ML, 1ML SQ SCH (23:30)
[2020-02-21] MEDS ORDERED: TRAZODONE 50MG TABLET PO PRN (23:30)
[2020-02-21] MEDS: ACETAMINOPHEN 325 MG TABLET PO PRN (23:35)
[2020-02-21] MEDS ORDERED: [UNRECOGNIZED DRUG - OTHER] MC SCH (23:45)
[2020-02-22] VITALS (7 sets, daily range): BP systolic 102–185; BP diastolic 52–92
[2020-02-22] MEDS ORDERED: CALCIUM CARBONATE 500 MG TAB.CHEW PO PRN (01:30)
[2020-02-22] MEDS ORDERED: niFEDipine ER 60 MG TABLET.ER PO ONE (01:30)
[2020-02-22] MEDS: HEPARIN 5,000 UNITS/ML, 1ML SQ SCH ×3 (07:24→23:30)
[2020-02-22] MEDS ORDERED: NIFEDIPINE 40 MG PO SCH (07:30)
[2020-02-22] MEDS: SEVELAMER CARBONATE 800MG TAB PO SCH ×3 (08:29→16:44)
[2020-02-22] MEDS: FOLIC ACID 1 MG TABLET PO SCH (08:30)
[2020-02-22] MEDS: ASPIRIN 81 MG TABLET EC PO SCH (08:30)
[2020-02-22] MEDS: CARVEDILOL 25 MG TABLET PO SCH ×2 (08:30→21:18)
[2020-02-22] MEDS ORDERED: niFEDipine ER 30 MG TABLET.ER PO SCH ×3 (09:00→21:00)
[2020-02-22] MEDS ORDERED: cloniDINE 0.3MG PATCH TD SCH (09:00)
[2020-02-22] MEDS ORDERED: niFEDipine ER 30 MG TABLET.ER ONE (10:36)
[2020-02-22] MEDS: LORazepam 1MG TABLET PO PRN (10:48)
[2020-02-22] MEDS ORDERED: niFEDipine ER 30 MG TABLET.ER PO ONE (11:00)
[2020-02-22] MEDS: niFEDipine ER 30 MG TABLET.ER PO SCH ×2 (12:23→16:44)
[2020-02-22] MEDS ORDERED: morphine SULFATE 10 MG/ML, 1ML IVPush ONE (15:30)
[2020-02-22] MEDS ORDERED: hydrALAzine 20 MG/ML, 1ML IV ONE (15:30)
[2020-02-22] MEDS: ONDANSETRON 2MG/ML, 2ML IVPush PRN ×2 (16:44→22:23)
[2020-02-22] MEDS: ACETAMINOPHEN 325 MG TABLET PO PRN (19:52)
[2020-02-22] MEDS ORDERED: CARVEDILOL 25 MG TABLET PO SCH (21:00)
[2020-02-23] VITALS (7 sets, daily range): BP systolic 140–200; BP diastolic 86–121
[2020-02-23] MEDS ORDERED: niFEDipine ER 60 MG TABLET.ER PO SCH ×2 (06:00→09:00)
[2020-02-23] MEDS: ACETAMINOPHEN 325 MG TABLET PO PRN ×2 (06:06→16:44)
[2020-02-23 07:18] LABS: MEAN CORPUSCULAR HEMOGLOBIN 32.5 pg (27.5-34.5); MEAN CORPUSCULAR HGB CONC 32.6 g/dL (33.2-36.2); MEAN CORPUSCULAR VOLUME 99.8 fL (81-97); MEAN PLATELET VOLUME 7.8 fL (7.4-10.4); PLATELET COUNT 178 x10^3/uL (130-400); RED BLOOD COUNT 3.79 x10^6/uL (4.38-5.82); RED CELL DISTRIBUTION WIDTH 16.7 % (9.4-14.8)
[2020-02-23 07:22] LABS: ANION GAP 8 mmol/L (5-15); CALCIUM 9.1 mg/dL (8.5-10.1); CHLORIDE 99 mmol/L (98-107)
[2020-02-23 07:42] LABS: MD YES
[2020-02-23] MEDS: HEPARIN 5,000 UNITS/ML, 1ML SQ SCH ×2 (07:57→14:43)
[2020-02-23 07:58] LABS: BAND#(MANUAL) 0.07 x10^3/uL; BANDS%(MANUAL) 2 % (0-7); BASOS#(MANUAL) 0.04 x10^3/uL (0-0.1); BASOS% (MANUAL) 1 % (0-1); EOS#(MANUAL) 0.11 x10^3/uL (0.0-0.4); EOS% (MANUAL) 3 % (1-7); LYMPH#(MANUAL) 1.37 x10^3/uL (1-3.4); LYMPHS% (MANUAL) 37 % (22-44); MONOS#(MANUAL) 0.52 x10^3/uL (0.3-2.7); MONOS% (MANUAL) 14 % (2-9); SEG#(MANUAL) 1.59 x10^3/uL (1.8-6.8); SEGS% (MANUAL) 43 % (42-75)
[2020-02-23 07:59] LABS: ANISOCYTOSIS 1+
[2020-02-23 08:00] LABS: <PLATELET ESTIMATE> ADEQUATE; <PLT MORPHOLOGY> NORMAL PLT MORPH
[2020-02-23] MEDS: SEVELAMER CARBONATE 800MG TAB PO SCH ×3 (09:05→16:35)
[2020-02-23] MEDS: LORazepam 1MG TABLET PO PRN ×2 (09:05→16:35)
[2020-02-23] MEDS: CARVEDILOL 25 MG TABLET PO SCH (09:31)
[2020-02-23] MEDS: ASPIRIN 81 MG TABLET EC PO SCH (14:42)
[2020-02-23] MEDS: FOLIC ACID 1 MG TABLET PO SCH (14:42)
[2020-02-23] MEDS: niFEDipine ER 30 MG TABLET.ER PO SCH ×2 (14:42→16:34)
[2020-02-23] MEDS ORDERED: CARVEDILOL 25 MG TABLET PO SCH (16:43)
[2020-02-23] MEDS ORDERED: NIFE60TA13 PO (18:12)
[2020-02-23] MEDS ORDERED: NIFE30TA13 PO (18:12)
[2020-02-23] MEDS ORDERED: CARV-39 PO (18:12)
[2020-02-23] MEDS ORDERED: TRAZ50TA66 PO (18:12)
[2020-02-23] MEDS ORDERED: HYDR100T25 PO (18:12)
[2020-02-23] MEDS: ONDANSETRON 2MG/ML, 2ML IVPush PRN (20:49)
[2020-02-23] MEDS ORDERED: niFEDipine ER 30 MG TABLET.ER PO ONE (21:00)
== END 2020-02-23 21:55 | disposition home or self-care (01) | DRG 425 ==
LOC: ED 21:20 → EDIP 21:27 → ED 21:33 → 4WST 22:29
PROVIDERS: ADMIT Family Medicine; ATTEND Family Medicine
PROC: 5A1D70Z Performance of Urinary Filtration, Intermittent, Less than 6 Hours Per Day (ICD-10-PCS; principal; 2020-02-22)
PROC: 5A1D70Z Performance of Urinary Filtration, Intermittent, Less than 6 Hours Per Day (ICD-10-PCS; 2020-02-23)
DX: E87.70 Fluid overload, unspecified (principal); E83.39 Other disorders of phosphorus metabolism; E83.41 Hypermagnesemia; F12.10 Cannabis abuse, uncomplicated; F20.9 Schizophrenia, unspecified; G89.29 Other chronic pain; N18.6 End stage renal disease; I13.2 Hypertensive heart and chronic kidney disease with heart failure and with stage 5 chronic kidney disease, or end stage renal disease; I50.9 Heart failure, unspecified; M54.12 Radiculopathy, cervical region; Z79.899 Other long term (current) drug therapy; Z87.891 Personal history of nicotine dependence; Z99.2 Dependence on renal dialysis; Z88.5 Allergy status to narcotic agent
CPT/HCPCS: 36415; 71045; 80048; 80053; 83735; 83880; 83970; 84100; 84484; 85025; 90935; 93005; G0378; J2405; J2270; Q0177

== ENCOUNTER 2020-03-06 12:16 | Observation (INO) | payer MEDICARE, MEDICAID ==
[~2020-03-06] VITALS: Ht 182.9 cm; Wt 79.0 kg
[~2020-03-06 12:16] MED LIST changes: +NIFE60TA13 PO; +TRAZ50TA66 PO
[2020-03-06] MEDS ORDERED: CLON1PAT7 TD (12:45)
[2020-03-06] MEDS ORDERED: CLON1PAT9 TD (12:46)
[2020-03-06] MEDS ORDERED: DOCU100C33 PO (12:47)
[2020-03-06] MEDS ORDERED: ACETAMINOPHEN 325 MG TABLET ONE (13:23)
[2020-03-06 13:29] LABS: MEAN CORPUSCULAR HGB CONC 32.4 g/dL (33.2-36.2); MEAN PLATELET VOLUME 8.1 fL (7.4-10.4); PLATELET COUNT 154 x10^3/uL (130-400); RED BLOOD COUNT 2.84 x10^6/uL (4.38-5.82); RED CELL DISTRIBUTION WIDTH 15.5 % (9.4-14.8)
[2020-03-06] MEDS ORDERED: niFEDipine ER 30 MG TABLET.ER PO ONE (13:30)
[2020-03-06] MEDS ORDERED: ACETAMINOPHEN 325 MG TABLET PO ONE (13:30)
[2020-03-06 13:36] LABS: ALBUMIN 3.3 g/dL (3.4-5.0); ANION GAP 8 mmol/L (5-15); CALCIUM 8.8 mg/dL (8.5-10.1); CHLORIDE 105 mmol/L (98-107)
[2020-03-06 14:00] LABS: MD YES
[2020-03-06 14:05] LABS: BAND#(MANUAL) 0.04 x10^3/uL; BANDS%(MANUAL) 1 % (0-7); BASOS#(MANUAL) 0.04 x10^3/uL (0-0.1); BASOS% (MANUAL) 1 % (0-1); EOS#(MANUAL) 0.08 x10^3/uL (0.0-0.4); EOS% (MANUAL) 2 % (1-7); HYPOCHROMIA 1+; LYMPH#(MANUAL) 1.68 x10^3/uL (1-3.4); LYMPHS% (MANUAL) 43 % (22-44); MONOS#(MANUAL) 0.74 x10^3/uL (0.3-2.7); MONOS% (MANUAL) 19 % (2-9); SEG#(MANUAL) 1.33 x10^3/uL (1.8-6.8); SEGS% (MANUAL) 34 % (42-75)
[2020-03-06 14:10] LABS: ANISOCYTOSIS 1+
[2020-03-06 14:12] LABS: <PLATELET ESTIMATE> ADEQUATE; <PLT MORPHOLOGY> NORMAL PLT MORPH
[2020-03-06] MEDS ORDERED: CALCIUM CHLORIDE 10%, 10ML SYR ONE (14:58)
[2020-03-06] MEDS ORDERED: INSULIN SINGLE DOSE, ER ONE (14:58)
[2020-03-06] MEDS ORDERED: DEXTROSE 50%, 50ML SYRINGE ONE (14:58)
[2020-03-06] MEDS ORDERED: INSULIN REGULAR 100 UNITS/ML, 3ML VIAL IVPush ONE (15:00)
[2020-03-06] MEDS ORDERED: SODIUM CHLORIDE FLUSH 10ML SYR IVF ONE (15:00)
[2020-03-06] MEDS ORDERED: DEXTROSE 50%, 50ML SYRINGE IVPush ONE (15:00)
[2020-03-06] MEDS ORDERED: CALCIUM CHLORIDE 10%, 10ML SYR IVPush ONE (15:00)
[2020-03-06] MEDS ORDERED: ONDANSETRON 2MG/ML, 2ML ONE (15:24)
[2020-03-06] MEDS ORDERED: ONDANSETRON 2MG/ML, 2ML IVPush ONE (15:30)
[2020-03-06] MEDS ORDERED: SODIUM CHLORIDE FLUSH 10ML SYR IVF PRN (15:30)
--- NOTE | 2020-03-06 15:41 | NUR ---
PT MEDICATED PER AUG. VS UPDATED. PT RESTING WITH NO COMPLAINTS.
[2020-03-06] MEDS ORDERED: cloniDINE 0.3MG PATCH TD SCH (17:00)
[2020-03-06] MEDS ORDERED: TRAZODONE 50MG TABLET PO PRN (17:00)
[2020-03-06] MEDS ORDERED: DOCUSATE 100 MG CAPSULE PO PRN (17:00)
[2020-03-06] MEDS ORDERED: SEVELAMER CARBONATE 800MG TAB PO SCH (17:00)
[2020-03-06] MEDS ORDERED: ONDANSETRON 2MG/ML, 2ML IVPush PRN (17:00)
[2020-03-06] MEDS ORDERED: LABETALOL 5MG/ML, 20ML IVPush PRN (17:00)
[2020-03-06] MEDS ORDERED: ACETAMINOPHEN 500 MG TABLET PO PRN (17:00)
--- NOTE | 2020-03-06 17:34 | NUR ---
PAGED DR. TAYLOR TO REQUEST ORDERS FOR PAIN AND MEDS TO HELP PATIENT'S CONSTIPATION.
--- NOTE | 2020-03-06 17:37 | NUR ---
DR. TAYLOR CALLED BACK AND PUT IN ORDER FOR LACTULOSE FOR CONSTIPATION. WILL VERIFY HYDROMORPHONE ALLERGY WITH PATIENT.
[2020-03-06] MEDS ORDERED: SENNA/DOCUSATE TABLET PO PRN (18:00)
[2020-03-06] MEDS ORDERED: niFEDipine ER 30 MG TABLET.ER PO SCH (18:00)
[2020-03-06] MEDS ORDERED: BISACODYL 10 MG SUPP PR PRN (18:00)
--- NOTE | 2020-03-06 18:10 | NUR ---
SBAR TELEPHONE HAND-OFF REPORT GIVEN TO WILLIE CAST. PT READY TO GO TO HOSPITAL ROOM.
[2020-03-06 18:32] VITALS: BP 166/86
[2020-03-06] MEDS ORDERED: HYDROcodone/APAP 5/325 TABLET PO PRN (20:00)
[2020-03-06] MEDS ORDERED: CATHFLO-ALTEPLASE 2 MG/2 ML CATHFLUSH ONE (20:00)
[2020-03-06] MEDS ORDERED: CARVEDILOL 25 MG TABLET PO SCH (21:00)
[2020-03-06] MEDS ORDERED: LORazepam 1MG TABLET PO SCH (21:00)
[2020-03-06] MEDS ORDERED: LACTULOSE 10 GM/15 ML UDC PO SCH (21:00)
[2020-03-06] MEDS: HEPARIN 5,000 UNITS/ML, 1ML SQ SCH (23:18)
[2020-03-07] MEDS: HEPARIN 5,000 UNITS/ML, 1ML SQ SCH (01:00)
[2020-03-07 01:14] VITALS: BP 181/101
[2020-03-07 02:54] VITALS: BP 153/88
[2020-03-07] MEDS ORDERED: niFEDipine ER 60 MG TABLET.ER PO SCH (06:00)
[2020-03-07] MEDS ORDERED: PANTOPRAZOLE 40MG TABLET PO SCH (07:30)
[2020-03-07] MEDS ORDERED: FOLIC ACID 1 MG TABLET PO SCH (09:00)
[2020-03-07] MEDS ORDERED: ASPIRIN 81 MG TABLET EC PO SCH (09:00)
== END 2020-03-07 06:54 | disposition left against medical advice (07) ==
LOC: ED 13:22 → INTOOBSV 15:23 → EDIP 15:23 → 4EST 18:35
PROVIDERS: ADMIT Internal Medicine; ATTEND Internal Medicine
DX: E87.5 Hyperkalemia (principal); I12.0 Hypertensive chronic kidney disease with stage 5 chronic kidney disease or end stage renal disease; N18.6 End stage renal disease; I16.0 Hypertensive urgency; R10.9 Unspecified abdominal pain; R53.1 Weakness; F12.10 Cannabis abuse, uncomplicated; N17.9 Acute kidney failure, unspecified; G89.4 Chronic pain syndrome; G62.9 Polyneuropathy, unspecified; K59.00 Constipation, unspecified; Z99.2 Dependence on renal dialysis; Z79.899 Other long term (current) drug therapy; Z79.82 Long term (current) use of aspirin; Z87.891 Personal history of nicotine dependence; Z79.4 Long term (current) use of insulin; Z91.19 Patient's noncompliance with other medical treatment and regimen
CPT/HCPCS: 36415; 74022; 80048; 82040; 82962; 85025; 86705; 86803; 87340; 87521; 93005; 96374; 96375; 99285; G0378; J1815; J2405; J2997; 90935; G0257

== ENCOUNTER 2020-03-09 10:59 | Emergency (ER) | payer MEDICARE, MEDICAID ==
[~2020-03-09] VITALS: Ht 182.9 cm; Wt 78.0 kg
[~2020-03-09 10:59] MED LIST changes: +CLON1PAT7 TD; +CLON1PAT9 TD; +DOCU100C33 PO
[2020-03-09] MEDS ORDERED: ASPIRIN 81 MG TABLET CHEW PO ONE (12:00)
[2020-03-09] MEDS ORDERED: ASPIRIN 81 MG TABLET EC ONE (12:09)
[2020-03-09] MEDS ORDERED: ASPIRIN 81 MG TABLET CHEW ONE (12:16)
--- NOTE | 2020-03-09 12:18 | NUR ---
PT STATES CP CURRENTLY RESOLVED, STATES HE BELIEVES IT WAS "MUSCLE PAIN." PT REMAINS ON MONITORS, VSS. PT'S SO AT BEDSIDE. PT AWAITING ALL LAB RESULTS. NO DISTRESS, CONT TO MONITOR.
[2020-03-09 12:29] LABS: CHLORIDE 101 mmol/L (98-107)
[2020-03-09] MEDS ORDERED: SODIUM CHLORIDE FLUSH 10ML SYR IVF ONE (12:30)
[2020-03-09 12:42] LABS: ALANINE AMINOTRANSFERASE 99 U/L (12-78); ALBUMIN 3.5 g/dL (3.4-5.0); ALKALINE PHOSPHATASE 176 U/L (45-117); ANION GAP 5 mmol/L (5-15); BILIRUBIN,TOTAL 0.6 mg/dL (0.2-1.0); CALCIUM 8.9 mg/dL (8.5-10.1); TOTAL PROTEIN 8.7 g/dL (6.4-8.2); TROPONIN I < 0.015 ng/mL (0.000-0.045)
[2020-03-09 12:48] LABS: MEAN CORPUSCULAR HEMOGLOBIN 32.5 pg (27.5-34.5); MEAN CORPUSCULAR HGB CONC 33.2 g/dL (33.2-36.2); PLATELET COUNT 202 x10^3/uL (130-400); RED BLOOD COUNT 3.04 x10^6/uL (4.38-5.82); RED CELL DISTRIBUTION WIDTH 15.4 % (9.4-14.8)
[2020-03-09 12:50] LABS: MD YES
[2020-03-09 12:55] LABS: ANISOCYTOSIS 1+; BASOS#(MANUAL) 0.04 x10^3/uL (0-0.1); BASOS% (MANUAL) 1 % (0-1); EOS#(MANUAL) 0.11 x10^3/uL (0.0-0.4); EOS% (MANUAL) 3 % (1-7); LYMPH#(MANUAL) 1.63 x10^3/uL (1-3.4); LYMPHS% (MANUAL) 44 % (22-44); MONOS#(MANUAL) 0.41 x10^3/uL (0.3-2.7); MONOS% (MANUAL) 11 % (2-9); SEG#(MANUAL) 1.52 x10^3/uL (1.8-6.8); SEGS% (MANUAL) 41 % (42-75)
[2020-03-09 12:56] LABS: <PLATELET ESTIMATE> ADEQUATE; <PLT MORPHOLOGY> NORMAL PLT MORPH
--- NOTE | 2020-03-09 13:18 | NUR ---
PT OK FOR D/C PER ERMD. PT HAS ALL OWN BELONGINGS UPON D/C.
[2020-03-09 13:20] VITALS: BP 147/81
== END 2020-03-09 14:06 | disposition home or self-care (01) ==
LOC: ED 14:00
DX: R07.89 Other chest pain (principal); I12.0 Hypertensive chronic kidney disease with stage 5 chronic kidney disease or end stage renal disease; N18.6 End stage renal disease; I51.7 Cardiomegaly; Z99.2 Dependence on renal dialysis; Z87.891 Personal history of nicotine dependence
CPT/HCPCS: 36415; 71045; 80053; 83690; 83735; 84100; 84484; 85025; 93005; 99285

== ENCOUNTER 2020-10-22 14:43 | Emergency (ER) | payer MEDICARE, MEDICAID ==
[~2020-10-22] VITALS: Ht 182.9 cm; Wt 78.7 kg
[~2020-10-22 14:43] MED LIST changes: -FOLI0.8T2 PO; +FOLI0.8T5 PO
[2020-10-22] MEDS ORDERED: OXYcodone/APAP 5/325MG TABLET PO ONE (15:30)
[2020-10-22] MEDS ORDERED: OXYcodone/APAP 5/325MG TABLET ONE (15:33)
--- NOTE | 2020-10-22 15:37 | NUR ---
BREAK RN; MEDICATED FOR PAIN PER ORDERS
--- NOTE | 2020-10-22 16:00 | NUR ---
BREAK RN. PT SENT IN FOR HYPERKALEMIA AND FLUID AND POSSIBLE NEED OF DIALYSIS. ON MEDIA RELATIONS ASSOCIATE.
[2020-10-22 16:04] LABS: BASOPHILS % (AUTO) 1 % (0-1); EOSINOPHILS % (AUTO) 2 % (1-7); LYMPHOCYTES % (AUTO) 36 % (22-44); MEAN CORPUSCULAR HEMOGLOBIN 34.2 pg (27.5-34.5); MEAN CORPUSCULAR HGB CONC 33.3 g/dL (33.2-36.2); MEAN PLATELET VOLUME 8.2 fL (7.4-10.4); MONOCYTES % (AUTO) 15 % (2-9); NEUTROPHILS % (AUTO) 46 % (42-75); PLATELET COUNT 177 x10^3/uL (130-400); RED BLOOD COUNT 3.66 x10^6/uL (4.38-5.82); RED CELL DISTRIBUTION WIDTH 17.5 % (9.4-14.8)
[2020-10-22 16:05] LABS: MD NO
--- NOTE | 2020-10-22 16:05 | NUR ---
assumed care of pt. report from Rob TAPIA pt here for abnormal lab values. pt is on chronic dialysis. pt currently resting with lab at bedside. SO at bedside
--- NOTE | 2020-10-22 16:40 | NUR ---
pt reports that he usually has dilaysis [facility]lq[facility] and that he missed his dialysis on Thursday because his car broke down. pt reports that he was told by [facility] on Thursday that his potassium was very high and he should go to the ER for evaluation pt is curretnly resting in position of comfort. no apparent distress. SO at bedside pt has had lab draw, CT has been completed. awaiting test results. pt updated on POC
[2020-10-22 16:48] LABS: ALANINE AMINOTRANSFERASE 52 U/L (12-78); ALBUMIN 3.5 g/dL (3.4-5.0); ANION GAP 11 mmol/L (5-15); CALCIUM 8.2 mg/dL (8.5-10.1); CHLORIDE 98 mmol/L (98-107)
[2020-10-22 16:50] LABS: ALKALINE PHOSPHATASE 213 U/L (45-117); BILIRUBIN,TOTAL 0.3 mg/dL (0.2-1.0); TOTAL PROTEIN 8.4 g/dL (6.4-8.2)
--- NOTE | 2020-10-22 17:30 | NUR ---
chart up for MD recheck
--- NOTE | 2020-10-22 18:26 | NUR ---
Dr Vasquez has been to bedside for recheck
[2020-10-22] MEDS ORDERED: SODIUM ZIRCONIUM CYCLOSILICATE 10 GM PO ONE (18:30)
--- NOTE | 2020-10-22 18:33 | NUR ---
Rx ordered from pharmacy
--- NOTE | 2020-10-22 18:48 | NUR ---
awaiting med from pharmacy. pt updated on POC report to Krzysztof TAPIA
--- NOTE | 2020-10-22 19:08 | NUR ---
patient medicated. disvcharged with instruction. verbalized understanding. patient just walked out after signing discharged papers. was told to stop at discharge area but he didnt.
[2020-10-22 19:10] VITALS: BP 128/83
== END 2020-10-22 19:13 | disposition home or self-care (01) ==
LOC: ED 15:00
DX: E87.5 Hyperkalemia (principal); I12.0 Hypertensive chronic kidney disease with stage 5 chronic kidney disease or end stage renal disease; N18.6 End stage renal disease; R53.1 Weakness; R10.9 Unspecified abdominal pain; R94.31 Abnormal electrocardiogram [ECG] [EKG]; Z88.5 Allergy status to narcotic agent; Z88.8 Allergy status to other drugs, medicaments and biological substances
CPT/HCPCS: 36415; 74176; 80053; 83735; 84100; 85025; 93005; 99285

== ENCOUNTER 2020-11-01 09:40 | Observation (INO) | payer MEDICARE, MEDICAID ==
[~2020-11-01] VITALS: Ht 182.9 cm; Wt 84.0 kg
--- NOTE | 2020-11-01 10:25 | NUR ---
TASK RN: PT TO ROOM 9 SECONDARY TO PT STATING HE IS HERE TO GET DIALYSIS. PT DENIES ANY MEDICAL ISSUES/PAIN. PT STATES HE IS SIMPLY HERE FOR DIALYSIS. STATES HE HAD A DIALYSIS APPT THIS AM BUT DID NOT GO SECONDARY TO "I'M HAVING ISSUES AT MY DIALYSIS CENTER". PT DID NOT WANT TO DISCLOSE FURTHER INFORMATION TO RN. PT RESTING ON GURNEY. NADN. MONITORS APPLIED. VSS. WARM BLANKET PROVIDED.
--- NOTE | 2020-11-01 10:52 | NUR ---
TASK RN: REPORT GIVEN TO WILLIE DUBON.
--- NOTE | 2020-11-01 11:14 | NUR ---
pt screaming nurse into hallway. this rn enters room and identifies self. pt states "when are you starting the iv and giving me my pain meds? pt educated that orders will be checked and this rn will be back in the room to update pt. orders checked and pt concerns brought to provider. pt re-educated on poc discussed with provider and at this time is agreeable to lab draw
[2020-11-01 11:40] LABS: MEAN CORPUSCULAR HEMOGLOBIN 33.4 pg (27.5-34.5); MEAN CORPUSCULAR HGB CONC 33.2 g/dL (33.2-36.2); MEAN PLATELET VOLUME 7.9 fL (7.4-10.4); PLATELET COUNT 194 x10^3/uL (130-400); RED BLOOD COUNT 3.36 x10^6/uL (4.38-5.82)
[2020-11-01 11:43] LABS: ALANINE AMINOTRANSFERASE 36 U/L (12-78); ALBUMIN 3.3 g/dL (3.4-5.0); ANION GAP 10 mmol/L (5-15); CHLORIDE 100 mmol/L (98-107)
[2020-11-01 11:46] LABS: ALKALINE PHOSPHATASE 181 U/L (45-117); BILIRUBIN,TOTAL 0.4 mg/dL (0.2-1.0); TOTAL PROTEIN 8.4 g/dL (6.4-8.2)
--- NOTE | 2020-11-01 11:59 | NUR ---
pt arguing with partner at bedside. loud profanities heard from nursing station. pt made aware that there are others in the hospital and that this rn can close the door so as others are not diturbed by the vulgarities. pt staates he will keep his voice down just dont close the door he needs to breathe
[2020-11-01 12:24] LABS: MD YES
[2020-11-01 12:27] LABS: EOS#(MANUAL) 0.05 x10^3/uL (0.0-0.4); EOS% (MANUAL) 1 % (1-7); LYMPH#(MANUAL) 2.26 x10^3/uL (1-3.4); LYMPHS% (MANUAL) 48 % (22-44); MONOS#(MANUAL) 0.85 x10^3/uL (0.3-2.7); MONOS% (MANUAL) 18 % (2-9); SEG#(MANUAL) 1.55 x10^3/uL (1.8-6.8); SEGS% (MANUAL) 33 % (42-75)
[2020-11-01 12:28] LABS: <PLATELET ESTIMATE> ADEQUATE; <PLT MORPHOLOGY> NORMAL PLT MORPH; ANISOCYTOSIS 1+
[2020-11-01] MEDS ORDERED: SODIUM CHLORIDE FLUSH 10ML SYR IVF PRN (13:30)
--- NOTE | 2020-11-01 13:32 | NUR ---
REPORT GIVEN TO WILLIE CLOUD FOR TRANSFER OF PATIENT CARE.
--- NOTE | 2020-11-01 13:49 | NUR ---
PATIENT TRANSFERRED TO MEDICAL TELEMETRY IN STABLE CONDITION VIA GURNEY WITH BARREL MAKER. ALL PATIENT BELONGINGS TAKEN TO FLOOR WITH PATIENT.
[2020-11-01] MEDS ORDERED: DOCUSATE 100 MG CAPSULE PO PRN (15:00)
[2020-11-01] MEDS ORDERED: LORazepam 1MG TABLET PO PRN (15:00)
[2020-11-01 16:04] VITALS: BP 136/68
[2020-11-01] MEDS ORDERED: SEVELAMER CARBONATE 800MG TAB PO SCH (17:00)
[2020-11-01] MEDS ORDERED: ACETAMINOPHEN 325 MG TABLET PO PRN (18:00)
[2020-11-01] MEDS ORDERED: CARVEDILOL 12.5 MG TABLET PO SCH (21:00)
[2020-11-01] MEDS ORDERED: niFEDipine ER 30 MG TABLET.ER PO SCH (21:00)
[2020-11-02] MEDS ORDERED: ASPIRIN 81 MG TABLET EC PO SCH (09:00)
[2020-11-02] MEDS ORDERED: LOSARTAN 50MG TABLET PO SCH (09:00)
== END 2020-11-01 22:50 | disposition home or self-care (01) ==
LOC: ED 09:57 → EDIP 13:04 → INTOOBSV 13:04 → 4EST 13:55 → UNDODISIN 22:50
PROVIDERS: ADMIT Internal Medicine; ATTEND Internal Medicine
DX: E87.5 Hyperkalemia (principal); I12.0 Hypertensive chronic kidney disease with stage 5 chronic kidney disease or end stage renal disease; N18.6 End stage renal disease; D63.1 Anemia in chronic kidney disease; N25.0 Renal osteodystrophy; F15.11 Other stimulant abuse, in remission; F12.90 Cannabis use, unspecified, uncomplicated; Z99.2 Dependence on renal dialysis; Z79.82 Long term (current) use of aspirin; Z79.899 Other long term (current) drug therapy; Z87.891 Personal history of nicotine dependence
CPT/HCPCS: 36415; 80053; 85025; 93005; 99284; G0378; 99285; G0257

== ENCOUNTER 2020-12-04 11:08 | Emergency (ER) | payer MEDICARE, MEDICAID ==
[~2020-12-04] VITALS: Ht 185.4 cm; Wt 81.2 kg
[2020-12-04 12:34] LABS: ALANINE AMINOTRANSFERASE 34 U/L (12-78); ALBUMIN 3.5 g/dL (3.4-5.0); ANION GAP 14 mmol/L (5-15); CALCIUM 8.1 mg/dL (8.5-10.1); CHLORIDE 103 mmol/L (98-107)
[2020-12-04 12:36] LABS: BASOPHILS % (AUTO) 1 % (0-1); EOSINOPHILS % (AUTO) 3 % (1-7); LYMPHOCYTES % (AUTO) 42 % (22-44); MEAN CORPUSCULAR HEMOGLOBIN 33.7 pg (27.5-34.5); MEAN CORPUSCULAR HGB CONC 34.1 g/dL (33.2-36.2); MEAN PLATELET VOLUME 7.4 fL (7.4-10.4); MONOCYTES % (AUTO) 18 % (2-9); NEUTROPHILS % (AUTO) 36 % (42-75); PLATELET COUNT 233 x10^3/uL (130-400); RED CELL DISTRIBUTION WIDTH 16.8 % (9.4-14.8)
[2020-12-04 12:41] LABS: ALKALINE PHOSPHATASE 141 U/L (45-117); BILIRUBIN,TOTAL 0.4 mg/dL (0.2-1.0); TOTAL PROTEIN 8.5 g/dL (6.4-8.2)
--- NOTE | 2020-12-04 13:02 | NUR ---
crusher tender: Pt ambulatory to room from lobby at this time.
[2020-12-04 13:34] VITALS: BP 138/84
--- NOTE | 2020-12-04 13:34 | NUR ---
Reports lab work on Thursday, RBCs low. Dialysis T, Th, Sat. Last dialysis was . PT TO ROOM WITH STEADY GAIT. PT REPORTS FEELING DROWSEY. ATTACHED TO ALL MONITORS. ZULEMA. [place]. AWAITING ORDERS.
--- NOTE | 2020-12-04 14:33 | NUR ---
PT LEFT AMA STATING TO EMT "MY DAUGHTER IS HAVING PROBLEMS, I NEED TO GO" AND ABRUPTLY LEFT WITH ALL BELONGINGS WITH STEADY GAIT. DR. CASTRO MADE AWARE.
[2020-12-05] MEDS ORDERED: ONDANSETRON ODT 4 MG PO PRN (12:30)
[2020-12-05] MEDS ORDERED: ONDANSETRON 2MG/ML, 2ML IVPush PRN (12:30)
[2020-12-05] MEDS ORDERED: TRAZODONE 50MG TABLET PO PRN (12:30)
[2020-12-05] MEDS ORDERED: SENNA/DOCUSATE TABLET PO PRN (12:30)
[2020-12-05] MEDS ORDERED: ACETAMINOPHEN 325 MG TABLET PO PRN (12:30)
[2020-12-05] MEDS ORDERED: HEPARIN 5,000 UNITS/ML, 1ML SQ SCH (12:30)
[2020-12-05] MEDS ORDERED: LORazepam 1MG TABLET PO PRN (12:30)
[2020-12-05] MEDS ORDERED: POLYETHYLENE GLYCOL 17 GM PACKET PO PRN (12:30)
[2020-12-05] MEDS ORDERED: SEVELAMER CARBONATE 800MG TAB PO SCH (17:00)
[2020-12-05] MEDS ORDERED: niFEDipine ER 30 MG TABLET.ER PO SCH (18:00)
[2020-12-05] MEDS ORDERED: CARVEDILOL 25 MG TABLET PO SCH (21:00)
[2020-12-06] MEDS ORDERED: ASPIRIN 81 MG TABLET EC PO SCH (09:00)
[2020-12-06] MEDS ORDERED: FOLIC ACID 0.8 MG PO SCH (09:00)
[2020-12-31] MEDS ORDERED: CARV12.52 PO (22:18)
[2020-12-31] MEDS ORDERED: LOSA50TA14 PO (22:22)
== END 2020-12-04 14:34 | disposition left against medical advice (07) ==
LOC: ED 13:37 → ORIP 12-05 12:14 → UNDOADMIN 12-05 12:14
DX: I12.0 Hypertensive chronic kidney disease with stage 5 chronic kidney disease or end stage renal disease (principal); N18.6 End stage renal disease; Z99.2 Dependence on renal dialysis; R53.83 Other fatigue; E87.5 Hyperkalemia
CPT/HCPCS: 36415; 71045; 80053; 85025; 93005; 99285

== ENCOUNTER 2021-01-05 04:09 | Observation (INO) | payer MEDICARE, MEDICAID ==
[~2021-01-05] VITALS: Ht 182.9 cm; Wt 87.6 kg
[~2021-01-05 04:09] MED LIST changes: +CARV12.52 PO; +LOSA50TA14 PO
[2021-01-05] MEDS ORDERED: SODIUM CHLORIDE FLUSH 10ML SYR IVF ONE ×2 (04:30→05:30)
--- NOTE | 2021-01-05 04:31 | NUR ---
PT PRESENTS TO ER WITH SIGNIFICANT OTHER FOR DIALYSIS, PT STATES HE DOES NOT GO TO REGULAR DIALYSIS TREATMENTS AND ONLY RECIEVES EMERGENCY DIALYSIS WHEN NEEDED AT THE HOSPITAL, PT STATES HE HAS PAIN IN HIS LOWER BACK AND HIS LEGS ARE SWOLLEN, PT A/OX4, ALL NEEDS IN REACH, VSS
[2021-01-05 04:52] LABS: BASOPHILS % (AUTO) 1 % (0-1); EOSINOPHILS % (AUTO) 2 % (1-7); LYMPHOCYTES % (AUTO) 30 % (22-44); MEAN CORPUSCULAR HEMOGLOBIN 35.5 pg (27.5-34.5); MEAN CORPUSCULAR HGB CONC 34.3 g/dL (33.2-36.2); MEAN PLATELET VOLUME 7.7 fL (7.4-10.4); MONOCYTES % (AUTO) 14 % (2-9); NEUTROPHILS % (AUTO) 53 % (42-75); PLATELET COUNT 196 x10^3/uL (130-400); RED BLOOD COUNT 2.32 x10^6/uL (4.38-5.82); RED CELL DISTRIBUTION WIDTH 15.8 % (9.4-14.8)
[2021-01-05 05:04] LABS: ALANINE AMINOTRANSFERASE 35 U/L (12-78); ALBUMIN 3.4 g/dL (3.4-5.0); ANION GAP 10 mmol/L (5-15); CALCIUM 7.8 mg/dL (8.5-10.1); CHLORIDE 100 mmol/L (98-107)
[2021-01-05 05:11] LABS: ALKALINE PHOSPHATASE 200 U/L (45-117); BILIRUBIN,TOTAL 0.5 mg/dL (0.2-1.0); TOTAL PROTEIN 8.5 g/dL (6.4-8.2)
--- NOTE | 2021-01-05 05:12 | NUR ---
Ede CORTEZ notified of critical lab values for potassium of 7.0 and BUN 106.
[2021-01-05] MEDS ORDERED: INSULIN REGULAR 100 UNITS/ML, 3ML VIAL IVPush ONE (05:30)
[2021-01-05] MEDS ORDERED: DEXTROSE 50%, 50ML SYRINGE IVPush ONE (05:30)
[2021-01-05] MEDS ORDERED: CALCIUM CHLORIDE 10%, 10ML SYR IVPush ONE (05:30)
[2021-01-05] MEDS ORDERED: SODIUM BICARB 8.4%, 50ML SYRINGE IVPush ONE (05:30)
[2021-01-05 05:53] LABS: <PLATELET ESTIMATE> ADEQUATE; <PLT MORPHOLOGY> NORMAL PLT MORPH; ANISOCYTOSIS 1+
[2021-01-05] MEDS ORDERED: SODIUM BICARBONATE 1 MEQ/ML, 50ML VIAL ONE (06:10)
[2021-01-05] MEDS ORDERED: DEXTROSE 50%, 50ML SYRINGE ONE (06:10)
[2021-01-05] MEDS ORDERED: CALCIUM CHLORIDE 10%, 10ML SYR ONE (06:10)
[2021-01-05] MEDS ORDERED: INSULIN LISPRO 100 UNITS/ML, PEN ONE (06:11)
[2021-01-05] MEDS ORDERED: SODIUM CHLORIDE FLUSH 10ML SYR IVF PRN (06:30)
--- NOTE | 2021-01-05 06:32 | NUR ---
Patient received insulin 10 units and dextrose 50 for medications. Patient refused to have medications of calcium chloride and sodium bicarbonate given to him because he stated that his "IV hurts and does not want the medications. Patient explained the risks and benefits of not receiving the other 2 medications. Patient still refused. Addendum: 01/05/21 at 0748 by [email or web address] IV patent, flushes without resistance and has blood return.
--- NOTE | 2021-01-05 06:45 | NUR ---
REPORT FROM WILLIE CABALLERO
[2021-01-05] MEDS ORDERED: ONDANSETRON 2MG/ML, 2ML IVPush PRN (07:00)
[2021-01-05] MEDS ORDERED: LABETALOL 5MG/ML, 20ML IVPush PRN (07:00)
[2021-01-05] MEDS ORDERED: HEPARIN 5,000 UNITS/ML, 1ML ONE (07:08)
[2021-01-05] MEDS: HEPARIN 5,000 UNITS/ML, 1ML SQ SCH ×3 (07:10→23:04)
--- NOTE | 2021-01-05 07:16 | NUR ---
PT LAYING ON GURNEY RESTING, NADN/VSS. PT REFUSED HEPARIN SQ, PT REFUSED SALINE FLUSH. CALL LIGHT WITHIN REACH, BED IN LOWEST POSITION, BED RAILS UP X2
--- NOTE | 2021-01-05 07:26 | NUR ---
Pt to be admitted to [facility], room 426. Report called to DESIREE.
[2021-01-05 08:10] VITALS: BP 125/71
[2021-01-05] MEDS: ACETAMINOPHEN 325 MG TABLET PO PRN ×2 (13:40→21:48)
[2021-01-05 14:00] VITALS: BP 152/107
[2021-01-05] MEDS ORDERED: LORazepam 1MG TABLET PO ONE (15:00)
[2021-01-05] MEDS ORDERED: LORazepam 1MG TABLET ONE (15:01)
[2021-01-05] MEDS: LORazepam 1MG TABLET PO SCH ×2 (15:45→20:10)
[2021-01-05] MEDS ORDERED: niFEDipine ER 30 MG TABLET.ER PO SCH (18:00)
[2021-01-05 19:05] VITALS: BP 175/118
[2021-01-05] MEDS ORDERED: CARVEDILOL 12.5 MG TABLET PO SCH (21:00)
[2021-01-05 21:21] VITALS: BP 152/94
[2021-01-06 00:15] VITALS: BP 148/105
[2021-01-06] MEDS: ACETAMINOPHEN 325 MG TABLET PO PRN (05:35)
[2021-01-06 05:52] LABS: CHLORIDE 97 mmol/L (98-107)
[2021-01-06 05:54] LABS: BASOPHILS % (AUTO) 1 % (0-1); EOSINOPHILS % (AUTO) 0 % (1-7); LYMPHOCYTES % (AUTO) 21 % (22-44); MEAN CORPUSCULAR HEMOGLOBIN 34.7 pg (27.5-34.5); MEAN CORPUSCULAR HGB CONC 33.6 g/dL (33.2-36.2); MONOCYTES % (AUTO) 13 % (2-9); NEUTROPHILS % (AUTO) 65 % (42-75); PLATELET COUNT 179 x10^3/uL (130-400); RED BLOOD COUNT 2.47 x10^6/uL (4.38-5.82); RED CELL DISTRIBUTION WIDTH 15.2 % (9.4-14.8)
[2021-01-06 05:59] LABS: ALANINE AMINOTRANSFERASE 36 U/L (12-78); ALBUMIN 3.3 g/dL (3.4-5.0); ALKALINE PHOSPHATASE 190 U/L (45-117); ANION GAP 4 mmol/L (5-15); BILIRUBIN,TOTAL 0.4 mg/dL (0.2-1.0); CALCIUM 8.7 mg/dL (8.5-10.1); TOTAL PROTEIN 8.6 g/dL (6.4-8.2)
[2021-01-06] MEDS ORDERED: ASPIRIN 81 MG TABLET EC PO SCH (09:00)
[2021-01-06] MEDS ORDERED: LOSARTAN 50MG TABLET PO SCH (09:00)
== END 2021-01-06 07:31 | disposition left against medical advice (07) ==
LOC: ED 06:05 → INTOOBSV 06:22 → EDIP 06:22 → 4WST 08:03
PROVIDERS: ADMIT Hospitalist; ATTEND Hospitalist
DX: I12.0 Hypertensive chronic kidney disease with stage 5 chronic kidney disease or end stage renal disease (principal); N18.6 End stage renal disease; D63.1 Anemia in chronic kidney disease; E87.5 Hyperkalemia; J96.01 Acute respiratory failure with hypoxia; E83.39 Other disorders of phosphorus metabolism; E78.5 Hyperlipidemia, unspecified; F15.90 Other stimulant use, unspecified, uncomplicated; F91.9 Conduct disorder, unspecified; N17.9 Acute kidney failure, unspecified; F12.90 Cannabis use, unspecified, uncomplicated; Z79.899 Other long term (current) drug therapy; Z99.2 Dependence on renal dialysis; Z79.82 Long term (current) use of aspirin; Z91.15 Patient's noncompliance with renal dialysis
CPT/HCPCS: 36415; 71045; 80053; 83735; 84100; 85025; 93005; 96374; 96375; 99291; G0378; J1815; G0257

== ENCOUNTER 2021-01-15 17:55 | Emergency (ER) | payer MEDICARE, MEDICAID ==
[~2021-01-15] VITALS: Ht 182.9 cm; Wt 83.1 kg
[2021-01-15 18:26] VITALS: BP 139/75
--- NOTE | 2021-01-15 20:54 | NUR ---
NIL X 1 @ 2022//NIL X 2 @ 2039/NILX3 @2049
== END 2021-01-15 18:54 | disposition home or self-care (01) ==
LOC: ED 18:00
DX: R06.02 Shortness of breath (principal); R22.43 Localized swelling, mass and lump, lower limb, bilateral; Z53.21 Procedure and treatment not carried out due to patient leaving prior to being seen by health care provider
CPT/HCPCS: 99281

== ENCOUNTER 2021-01-24 16:15 | Emergency (ER) | payer MEDICARE, MEDICAID ==
[~2021-01-24] VITALS: Ht 182.9 cm; Wt 84.0 kg
[2021-01-24 16:40] VITALS: BP 137/81
[2021-01-24 17:39] LABS: BASOPHILS % (AUTO) 2 % (0-1); EOSINOPHILS % (AUTO) 6 % (1-7); LYMPHOCYTES % (AUTO) 20 % (22-44); MEAN CORPUSCULAR HGB CONC 33.4 g/dL (33.2-36.2); MEAN PLATELET VOLUME 7.7 fL (7.4-10.4); MONOCYTES % (AUTO) 16 % (2-9); NEUTROPHILS % (AUTO) 56 % (42-75); PLATELET COUNT 222 x10^3/uL (130-400); RED BLOOD COUNT 2.27 x10^6/uL (4.38-5.82); RED CELL DISTRIBUTION WIDTH 16.1 % (9.4-14.8)
[2021-01-24 17:41] LABS: ALANINE AMINOTRANSFERASE 26 U/L (12-78); ALBUMIN 3.1 g/dL (3.4-5.0); ANION GAP 17 mmol/L (5-15); CALCIUM 7.9 mg/dL (8.5-10.1); CHLORIDE 100 mmol/L (98-107)
[2021-01-24 17:49] LABS: ALKALINE PHOSPHATASE 220 U/L (45-117); BILIRUBIN,TOTAL 0.4 mg/dL (0.2-1.0); TOTAL PROTEIN 8.4 g/dL (6.4-8.2)
--- NOTE | 2021-01-24 20:15 | NUR ---
NIL X2
--- NOTE | 2021-01-24 20:34 | NUR ---
NIL X3
== END 2021-01-24 20:38 | disposition left against medical advice (07) ==
LOC: ED 16:45
DX: N18.6 End stage renal disease (principal); Z99.2 Dependence on renal dialysis; Z91.19 Patient's noncompliance with other medical treatment and regimen
CPT/HCPCS: 36415; 71045; 80053; 83735; 84100; 85025; 99284

== ENCOUNTER 2021-02-05 13:16 | Emergency (ER) | payer MEDICARE, MEDICAID ==
[~2021-02-05] VITALS: Ht 182.9 cm; Wt 83.3 kg
[2021-02-05 13:37] VITALS: BP 173/108
--- NOTE | 2021-02-05 13:55 | NUR ---
PT. TO ED WITH MULTIPLE C/O "I HAVE A BLOOD CLOT IN MY RIGHT ARM, IT'S HURTING WORSE. IT'S SWELLING MORE, THEY DIDN'T EVEN PUT ME ON BLOOD THINNERS WHEN I WAS HERE." "I WAS JUST DISCHARGED FROM HERE FOR MY ABSCESS TOOTH AND I HAVE BEEN HAVING DIARRHEA FOR THE LAST WEEK. NONE OF THE MEDS ARE WORKING TO KEEP ME FROM HAVING DIARRHEA." PT. RUDE TO STAFF.
--- NOTE | 2021-02-05 14:09 | NUR ---
PT. AMBULATORY OUT OF ROOM AND OUT TO LOBBY. PT. WOULD NOT RESPOND TO STAFF ASKING QUESTIONS WHEN WALKING OUT.
--- NOTE | 2021-02-05 14:13 | NUR ---
PER SECURITY IN LOBBY PT. LEFT. PROVIDER AWARE.
== END 2021-02-05 14:15 | disposition left against medical advice (07) ==
LOC: ED 13:19
DX: M79.621 Pain in right upper arm (principal); Z91.15 Patient's noncompliance with renal dialysis; I12.9 Hypertensive chronic kidney disease with stage 1 through stage 4 chronic kidney disease, or unspecified chronic kidney disease; N18.9 Chronic kidney disease, unspecified; Z99.2 Dependence on renal dialysis; F17.210 Nicotine dependence, cigarettes, uncomplicated
CPT/HCPCS: 99281